=== PATIENT | female | born 1990 | race Caucasian/White ===

== ENCOUNTER 2017-04-25 21:21 | Emergency (ER) | payer OTHER ==
[2017-04-25 23:34] LABS: ABSOLUTE EOSINOPHILS # (AUTO) 0.2 10^3/uL (0.0-0.6); ABSOLUTE LYMPHOCYTES (AUTO) 2.5 10^3/uL (0.5-4.7); ABSOLUTE MONOCYTES (AUTO) 0.5 10^3/uL (0.1-1.4); ABSOLUTE NEUT (AUTO) 3.2 10^3/uL (1.7-8.2); BASOPHILS % (AUTO) 0.6 % (0-2); EOSINOPHILS % (AUTO) 2.6 % (0-6); HEMATOCRIT 39.2 % (36.0-47.0); HEMOGLOBIN 12.9 g/dL (12.0-15.5); HGB HCT DIFFERENCE -0.5; LYMPHOCYTES % (AUTO) 39.1 % (13-45); MEAN CORPUSCULAR HEMOGLOBIN 29.8 pg (27.0-33.4); MEAN CORPUSCULAR HGB CONC 32.9 g/dL (32.0-36.0); MEAN CORPUSCULAR VOLUME 91 fl (80-97); RED BLOOD COUNT 4.32 10^6/uL (3.72-5.28); RED CELL DISTRIBUTION WIDTH 13.4 % (11.5-14.0); SEGMENTED NEUTROPHILS % (AUTO) 49.7 % (42-78); WHITE BLOOD COUNT 6.4 10^3/uL (4.0-10.5)
[2017-04-25 23:47] LABS: ALANINE AMINOTRANSFERASE 35 U/L (9-52); ALBUMIN 4.4 g/dL (3.5-5.0); ALKALINE PHOSPHATASE 52 U/L (38-126); ANION GAP 12 (5-19); ASPARTATE AMINO TRANSFERASE 19 U/L (14-36); BILIRUBIN,DIRECT 0.2 mg/dL (0.0-0.4); BILIRUBIN,TOTAL 0.5 mg/dL (0.2-1.3); BLOOD UREA NITROGEN 13 mg/dL (7-20); CALCIUM 8.9 mg/dL (8.4-10.2); CARBON DIOXIDE 24 mmol/L (22-30); CHLORIDE 104 mmol/L (98-107); CREATININE RESULT 0.75 mg/dL (0.52-1.25); GLUCOSE 85 mg/dL (75-110); LIPASE 160.7 U/L (23-300); POTASSIUM 4.6 mmol/L (3.6-5.0); SODIUM 139.8 mmol/L (137-145); TOTAL PROTEIN 7.2 g/dL (6.3-8.2)
[2017-04-26] MEDS ORDERED: NORMAL SALINE 1000 ML 1,000 ML IV ONE (00:54)
[2017-04-26] MEDS ORDERED: MORPHINE SULFATE 10 MG/ML INJ IV ONE ×2 (00:59→05:13)
[2017-04-26] MEDS ORDERED: ONDANSETRON HCL INJ/PF 4 MG/2 ML SDV IV ONE (01:02)
[2017-04-26 01:08] LABS: APPEARANCE,URINE CLEAR; BILIRUBIN,URINE NEGATIVE (NEGATIVE); GLUCOSE, URINE NEGATIVE (NEGATIVE); KETONES,URINE NEGATIVE (NEGATIVE); LEUKOCYTE ESTERASE,URINE NEGATIVE (NEGATIVE); NITRITE,URINE NEGATIVE (NEGATIVE); PROTEIN,URINE NEGATIVE (NEGATIVE); URINE SPECIFIC GRAVITY 1.008; UROBILINOGEN,URINE NEGATIVE mg/dL (<2.0)
--- NOTE | 2017-04-26 05:12 | RADIOLOGY REPORT (SQ) ---
EXAM DESCRIPTION: CT ABD/PELVIS WITH IV ORAL COMPLETED DATE/TIME: 04/26/2017 4:32 am REASON FOR STUDY: RLQ pain COMPARISON: 11/07/2015. TECHNIQUE: CT scan of the abdomen and pelvis performed using helical scanning technique with dynamic intravenous contrast injection. No oral contrast. Images reviewed with lung, soft tissue, and bone windows. Reconstructed coronal and sagittal MPR images reviewed. Delayed images for evaluation of the urinary system also acquired. All images stored on PACS. All CT scanners at this facility use dose modulation, iterative reconstruction, and/or weight based d osing when appropriate to reduce radiation dose to as low as reasonably achievable (ALARA). [facility]: Dose Right [facility]: CareDose [facility]: Dose Right [facility]: Teradose 4D [facility]: [employer] CONTRAST TYPE AND DOSE: contrast/concentration: Isovue 370.00 mg/ml; Total Contrast Delivered: 64.0 ml; Total Saline Delivered: 65.0 ml RENAL FUNCTION: Creatinine 0.75 RADIATION DOSE: Up-to-date CT equipment and radiation dose reduction techniques were employed. CTDIv ol: 5.6 - 7.5 mGy. DLP: 669 mGy-cm.. LIMITATIONS: None. FINDINGS: LOWER CHEST: No significant findings. No nodules or infiltrates. LIVER: Normal size. No masses. No dilated ducts. SPLEEN: Normal size. No focal lesions. PANCREAS: No masses. No significant calcifications. No adjacent inflammation or peripancreatic fluid collections. Pancreatic duct not dilated. GALLBLADDER: No identified stones by CT criteria. No inflammatory changes to suggest cholecystitis. ADRENAL GLANDS: No significant masses or asymmetry. RIGHT KIDNEY AND URETER: No solid masses. No significant calcifications. No hydronephrosis or hyd roureter. Moderate extrarenal pelvis. Moderate diffuse enlargement of the right ureter. No stone i dentified. Asymmetric post excretion enhancement of the right collecting system. LEFT KIDNEY AND URETER: No solid masses. No significant calcifications. No hydronephrosis or hydr oureter. Moderate extrarenal pelvis. AORTA AND VESSELS: No aneurysm. No dissection. Renal arteries, SMA, celiac without stenosis. RETROPERITONEUM: No retroperitoneal adenopathy, hemorrhage or masses. BOWEL AND PERITONEAL CAVITY: No masses or inflammatory changes. No free fluid or peritoneal masses. APPENDIX: Normal. PELVIS: No mass or free fluid. Normal bladder. 4.1 cm likely left ovarian cyst ; cannot exclude neop lasm. Adequate appearing IUD. ABDOMINAL WALL: No masses. No hernias. BONES: No significant or acute findings. OTHER: No other significant finding. IMPRESSION: 1. Moderate right hydroureter. No obstructive stone identified. Previously described 1 cm obstructive stone of the right distal ureter on exam dated October 2015 is no longer present. D ilation of the right ureter may be due to residual stricture or residual dilation. Urology consultat ion recommended. 2. New 4.1 cm likely left ovarian cyst ; cannot exclude neoplasm. Pelvic sonogram recommended. TECHNICAL DOCUMENTATION: JOB ID: [id number] Quality ID # [id number]: Final reports with documentation of one or more dose reduction techniques (e.g., Au tomated exposure control, adjustment of the mA and/or kV according to patient size, use of iterative reconstruction technique) 2010 [employer]- All Rights Reserved
--- NOTE | 2017-04-26 05:15 | ER Document Report ---
ED GI/ - General Chief Complaint: Flank Pain Stated Complaint: FLANK PAIN Time Seen by Provider: 04/26/17 00:46 Notes: Patient is a 26 year old female that comes to the ED for chief complaint of right mid to lower abdominal pain that started earlier today. She denies flank pain, vomiting, nausea, dysuria, fever/chills. She does have a history of kidney stones, had a large one removed via stent within the past year. She denies other surgeries. She has an IUD in place. TRAVEL OUTSIDE OF THE [place] IN LAST 30 DAYS: No - Related Data Allergies/Adverse Reactions: No Known Allergies Allergy (Unverified 05/27/12 15:16) Past Medical History - General Information source: Patient - Social History Smoking Status: Never Smoker Chew tobacco use (# tins/day): No Frequency of alcohol use: Occasional Drug Abuse: None Lives with: Spouse/Significant other Family History: Reviewed & Not Pertinent Patient has suicidal ideation: No Patient has homicidal ideation: No - Past Medical History Cardiac Medical History: Denies: Hx Coronary Artery Disease, Hx Heart Attack, Hx Hypertension Pulmonary Medical History: Denies: Hx Asthma, Hx Bronchitis, Hx COPD, Hx Pneumonia Neurological Medical History: Denies: Hx Cerebrovascular Accident, Hx Seizures Renal/ Medical History: Reports: Hx Kidney Stones. Denies: Hx Peritoneal Dialysis Musculoskeltal Medical History: Denies Hx Arthritis Psychiatric Medical History: Reports: Hx Attention Deficit Hyperactivity Disorder - adderall Past Surgical History: Reports: Hx Kidney (Renal Surgery) - stent placement - Immunizations Hx Diphtheria, Pertussis, Tetanus Vaccination: No Review of Systems - Review of Systems Constitutional: No symptoms reported EENT: No symptoms reported Cardiovascular: No symptoms reported Respiratory: No symptoms reported Gastrointestinal: See HPI Genitourinary: See HPI Female Genitourinary: No symptoms reported Musculoskeletal: No symptoms reported Skin: No symptoms reported Hematologic/Lymphatic: No symptoms reported Neurological/Psychological: No symptoms reported Physical Exam - Vital signs Vitals: Temp Pulse Resp BP Pulse Ox 97.6 F 85 16 112/64 100 04/25/17 21:42 04/25/17 21:42 04/25/17 21:42 04/25/17 21:42 04/25/17 21:42 Interpretation: Normal - General General appearance: Appears well, Alert In distress: None - HEENT Head: Normocephalic, Atraumatic Eyes: Normal Conjunctiva: Normal Extraocular movements intact: Yes Eyelashes: Normal Pupils: PERRL - Respiratory Respiratory status: No respiratory distress Chest status: Nontender Breath sounds: Normal Chest palpation: Normal - Cardiovascular Rhythm: Regular Heart sounds: Normal auscultation Murmur: No - Abdominal Inspection: Normal Distension: No distension Bowel sounds: Normal Tenderness: Tender - Patient is tender in the right lower quadrant in McBurney' s point, surrounding abdomen soft and nontender, no rebound tenderness, no rigidity, McBurney's point Organomegaly: No organomegaly - Back Back: Normal, Nontender. No: CVA tenderness - Extremities General upper extremity: Normal inspection, Nontender, Normal color, Normal ROM , Normal temperature General lower extremity: Normal inspection, Nontender, Normal color, Normal ROM , Normal temperature, Normal weight bearing. No: Kristel's sign - Neurological Neuro grossly intact: Yes Cognition: Normal Orientation: AAOx4 [place]obo Coma Scale Eye Opening: Spontaneous [place] Coma Scale Verbal: Oriented [place] Coma Scale Motor: Obeys Commands [place] Coma Scale Total: 15 Speech: Normal Motor strength normal: LUE, RUE, LLE, RLE Sensory: Normal - Psychological Associated symptoms: Normal affect, Normal mood - Skin Skin Temperature: Warm Skin Moisture: Dry Skin Color: Normal Course - Re-evaluation Re-evalutation: B, chemistry, urinalysis all unremarkable. HCG negative. No hematuria, no flank pain, patient has McBurney's point tenderness, concern for possible appendicitis. CAT scan with oral and IV contrast ordered CAT scan showing no hydronephrosis, shows right ureteral dilation and possible stricture, no stones seen, no other abnormality seen in the urinary tract. Appendix normal. CAT scan incidentally showed left-sided cystic mass which appears to be ovarian, recommending ultrasound. Discussed with Dr. Larson. Ultrasound showing good blood flow, cystic mass on the left ovary, recommending 6-8 week follow-up. Pain is controlled, she is well-appearing, no fever, no concerning workup acutely. The patient in detail, recommended close neurology follow-up, discussed [employer] follow-up and monitoring, discussed return precautions, providing pain and nausea medication. Provided with this copy of CAT scan and report, patient states understanding and agreement - Vital Signs Vital signs: Temp Pulse Resp BP Pulse Ox 97.6 F 85 16 112/64 100 06/30/17 21:42 04/25/17 21:42 04/25/17 21:42 04/25/17 21:42 04/25/17 21:42 - Laboratory Result Diagrams: 04/25/17 23:15 04/25/17 23:15 Discharge - Discharge Clinical Impression: Abdominal pain Qualifiers: Abdominal location: lower abdomen, unspecified Qualified Code(s): R10.30 - Lower abdominal pain, unspecified Condition: Stable Disposition: HOME, SELF-CARE Additional Instructions: Your CAT scan shows a dilated ureter on the right side. Please follow-up with your urologist, take the disc and report for additional evaluation and treatment. This needs to be a close follow-up. Return if you develop any concerning or worsening symptoms including severe pain, vomiting, fever, etc. Your ultrasound shows a cystic structure on the left ovary, this could resolve, however I recommend a 6-8 week follow-up ultrasound to evaluate this (either with the [employer] referral, primary care, or at the emergency department). Return sooner if he suddenly have severe left lower abdominal pain, vomiting, or any other concerning symptoms. [facility] Urologist in [place], [place] Address: [address] [place] [address] [facility] Medical clinic in [place], [place] Address: [address] [place], [place] [id number] Prescriptions: Morphine Sulfate [Morphine Ir 15 Mg Tablet] 15 mg PO Q4HP PRN #20 tablet PRN Reason: Promethazine HCl [Phenergan 25 mg Tablet] 1 - 2 tab PO Q6H PRN #20 tablet PRN Reason: Forms: Return to Work Referrals: [facility] [Provider Group] - Follow up as needed
[2017-04-26] MEDS ORDERED: MORPHINE SULFATE 10 MG/ML INJ ONE (05:18)
--- NOTE | 2017-04-26 06:07 | RADIOLOGY REPORT (SQ) ---
EXAM DESCRIPTION: U/S NON OB PEL TV W/DOPPLER COMPLETED DATE/TIME: 04/26/2017 5:55 am REASON FOR STUDY: evaluate ovaries COMPARISON: None. TECHNIQUE: Dynamic and static grayscale images acquired of the pelvis via transvaginal approach and recorded on PACS. Additional selected color Doppler and spectral images recorded. LIMITATIONS: None. FINDINGS: UTERUS: Contour normal. No mass. Adequate appearing IUD. The ENDOMETRIAL STRIPE: No focal or generalized thickening. No masses. CERVIX: No nabothian cysts. RIGHT OVARY: No abnormal masses. RIGHT OVARY DOPPLER: Normal arterial vascular flow without evidence for torsion. LEFT OVARY: 4.4 cm left ovary contains a 4.0 cm cystic mass. LEFT OVARY DOPPLER: Normal arterial vascular flow without evidence for torsion. FREE FLUID: None noted. OTHER: No other significant finding. MEASUREMENTS: UTERUS: 10.5 cm. ENDOMETRIAL STRIPE: 0.4 cm thickness. RIGHT OVARY: 3.3 cm. LEFT OVARY: 4.4 cm. IMPRESSION: 1. A 4.0 cm cystic component of the left ovary probably due to a prominent functional c yst ; other neoplastic processes cannot be excluded. 6 to 8 week surveillance sonogram recommended. 2. IUD. TECHNICAL DOCUMENTATION: JOB ID: [id number] [employer]- All Rights Reserved
[2017-04-26 07:00] VITALS: BP 103/72
== END 2017-04-26 07:00 | disposition home or self-care (01) ==
LOC: ER 21:21
DX: R10.31 Right lower quadrant pain (principal); N28.82 Megaloureter; R19.00 Intra-abdominal and pelvic swelling, mass and lump, unspecified site; Z87.442 Personal history of urinary calculi; Z98.890 Other specified postprocedural states; Z97.5 Presence of (intrauterine) contraceptive device
CPT/HCPCS: 96376; 99284; 96361; 96374; 96375; 36415; 83690; 85025; 81025; 80053; 81001; 76830; 93976; 74177; J2270; J2405; J7030

== ENCOUNTER → 2017-05-16 | Outpatient (CLI) | payer OTHER ==
[~2017-05-16] MED LIST: FUROSEMIDE INJ/PF 40 MG/4 ML SDV ONE
--- NOTE | 2017-05-16 14:21 | RADIOLOGY REPORT (SQ) ---
EXAM DESCRIPTION: NM RENAL WITH LASIX COMPLETED DATE/TIME: 05/16/2017 1:50 pm REASON FOR STUDY: HYDRONEPHROSIS N13.2 HYDRONEPHROSIS WITH RENAL AND URETERAL CALCULOUS OBSTR COMPARISON: CT of the abdomen and pelvis dated 04/26/2017 RADIONUCLIDE AND DOSE: 5.27 millicuries Tc-99m MAG 3 The route of agent administration: Intravenous ADDITIONAL DRUGS AND DOSES: Lasix 20 mg. TECHNIQUE: Following administration of the radionuclide, flow images of the kidneys were acquired fo llowed by sequential imaging for 30 minutes. Intravenous Lasix was given at the midpoint of the study . Time activity curves were generated. LIMITATIONS: None. FINDINGS: ACTIVITY LEFT KIDNEY: 48 %. ACTIVITY RIGHT KIDNEY: 52 %. There is prompt uptake of activity in the kidneys bilaterally simultaneous with passage of the aortic bolus. There is normal excretion with progression of activity from the renal cortex into the collec ting system and subsequently into the ureters on the left. There is delayed accumulation of activity in the right pelvocaliceal system with prompt excretion. Time activity curves demonstrate normal ex cretory pattern with no abnormal retention on the left. Time activity curve demonstrates delayed acc umulation of activity on the right with prompt excretion. No obstructive changes. IMPRESSION: There is prompt uptake and excretion in the left kidney. There is delayed accumulation of activity in the right pelvocaliceal system with prompt excretion. This correlates with the findin gs on the abdominal CT scan with a moderate right hydroureter being identified. No significant obstr uction is seen. TECHNICAL DOCUMENTATION: JOB ID: [id number]- All Rights Reserved
== END ==
LOC: RAD 10:58
PROVIDERS: ATTEND Urology
DX: N13.2 Hydronephrosis with renal and ureteral calculous obstruction (principal)
CPT/HCPCS: 78708; A9562; J1940

== ENCOUNTER 2017-10-11 14:51 | Emergency (ER) | payer OTHER ==
[2017-10-11] MEDS ORDERED: ONDANSETRON 4 MG TAB.RAPDIS PO ONE (15:37)
--- NOTE | 2017-10-11 15:39 | ER Document Report ---
HPI - HPI Pain Level: 4 Notes: Patient is a 26-year-old female with a history of kidney stones who presents to the ED complaining of bilateral lower back pain with hematuria and urinary frequency 3-4 days. Patient states that the pain is relatively constant and a dull ache with episodes of sharp pain. Patient states that the pain will come around to her sides, but does not radiate any further. Patient states that she does have associated nausea without vomiting, but is still eating and drinking otherwise without any difficulties. She has had normal bowel movements. She denies any other recent illness. She denies any drug allergies or IV drug use. Denies any procedures or injections into her back. Denies any headache, fever , eye redness/discharge, URI, sore throat, chest pain, palpitations, syncope, cough, shortness of breath, wheeze, dyspnea, abdominal pain, vomiting/diarrhea, vaginal discharge/odor/bleeding, urinary retention, loss of control of bowel or bladder, numbness/tingling, saddle anesthesia, muscle paralysis/weakness, or rash. - ROS Notes: REVIEW OF SYSTEMS: CONSTITUTIONAL : Denies fever, chills, or sweats. Denies recent illness. EENT: Denies eye, ear, throat, or mouth pain or symptoms. Denies nasal or sinus congestion or discharge. Denies throat, tongue, or mouth swelling or difficulty swallowing. CARDIOVASCULAR: Denies chest pain. Denies palpitations or racing or irregular heart beat. Denies ankle edema. RESPIRATORY: Denies cough, cold, or chest congestion. Denies shortness of breath, difficulty breathing, or wheezing. GASTROINTESTINAL: Denies abdominal pain or distention. see hpi. Denies vomiting, or diarrhea. Denies blood in vomitus, stools, or per rectum. Denies black, tarry stools. Denies constipation. GENITOURINARY: see hpi FEMALE GENITOURINARY: Denies vaginal bleeding, heavy or abnormal periods, irregular periods. Denies vaginal discharge or odor. MUSCULOSKELETAL: see hpi SKIN: Denies rash, lesions or sores. NEUROLOGICAL: Denies dizziness or lightheadedness. Denies headache. Denies weakness or paralysis or loss of use of either side. Denies problems with gait or speech. Denies sensory loss, numbness, or tingling. Denies seizures. ALL OTHER SYSTEMS REVIEWED AND NEGATIVE. Dictation was performed using Dragon voice recognition software - REPRODUCTIVE LMP: IUD, Irregular Reproductive: DENIES: : Past Medical History - Social History Smoking Status: Never Smoker Chew tobacco use (# tins/day): No Frequency of alcohol use: Occasional Drug Abuse: None Family History: Reviewed & Not Pertinent Patient has suicidal ideation: No Patient has homicidal ideation: No - Past Medical History Cardiac Medical History: Denies: Hx Coronary Artery Disease, Hx Heart Attack, Hx Hypertension Pulmonary Medical History: Denies: Hx Asthma, Hx Bronchitis, Hx COPD, Hx Pneumonia Neurological Medical History: Denies: Hx Cerebrovascular Accident, Hx Seizures Renal/ Medical History: Reports: Hx Kidney Stones. Denies: Hx Peritoneal Dialysis Musculoskeltal Medical History: Denies Hx Arthritis Psychiatric Medical History: Reports: Hx Attention Deficit Hyperactivity Disorder - adderall Past Surgical History: Reports: Hx Kidney (Renal Surgery) - stent placement - Immunizations Hx Diphtheria, Pertussis, Tetanus Vaccination: No Vertical Provider Document - CONSTITUTIONAL Agree With Documented VS: Yes Notes: PHYSICAL EXAMINATION: GENERAL: Well-appearing, well-nourished and in no acute distress. A&Ox4 LUNGS: Breath sounds clear to auscultation bilaterally and equal. No wheezes rales or rhonchi. HEART: Regular rate and rhythm without murmurs, rubs, gallops. ABDOMEN: Soft, nontender, nondistended abdomen. No guarding, no rebound. No masses appreciated. Normal bowel sounds present. No CVA tenderness bilaterally. No pulsatile mass. Musculoskeletal: LE's b/l: FROM to passive/active. Strength 5+/5. Back: + mild tenderness to the L-paraspinal mm. FROM. Strength 5+/5. SLR neg b /l. No step-offs, erythema, or ecchymosis. No vertebral point tenderness. Extremities: No cyanosis, clubbing, or edema b/l. Peripheral pulses 2+. Capillary refill less than 3 seconds. NEUROLOGICAL: Normal speech, normal gait. Normal sensory, motor exams PSYCH: Normal mood, normal affect. SKIN: Warm, Dry, normal turgor, no rashes or lesions noted. - INFECTION CONTROL TRAVEL OUTSIDE OF THE [place] IN LAST 30 DAYS: No - RESPIRATORY O2 Sat by Pulse Oximetry: 100 Course - Re-evaluation Re-evalutation: 10/11/17 17:27 Patient is an afebrile, well-hydrated, 26-year-old female who presents to the ED with a urinary tract infection. Vitals are stable. PE is otherwise unremarkable. See urinalysis results. Urine cultures pending. HCG negative. CT scan was ordered due to patient's description of pain and prior history of ureteral stones with current urinary infection. Toradol was given IM today along with Zofran p.o. Patient is tolerating p.o. without any difficulties. Low suspicion/risk for acute appendicitis, bowel obstruction, acute cholecystitis, acute cholangitis, perforated diverticulitis, incarcerated hernia , pancreatitis, perforated ulcer, peritonitis, sepsis, pelvic inflammatory disease, ectopic , tubo-ovarian abscess, ovarian torsion, or other systemic emergent condition at this time. Patient is aware that her condition can change from initial presentation and she needs to monitor symptoms closely and seek medical attention if any acute changes. I will send her home with a prescription for Keflex to take as directed. Conservative measures otherwise for symptoms. Recheck with your PCM in 3-5 days. Consider consult with a urologist if needed. Return to the ED with any worsening/concerning symptoms otherwise as reviewed in discharge. Patient is in agreement. - Vital Signs Vital signs: Temp Pulse Resp BP Pulse Ox 98.8 F 83 16 121/82 100 10/11/17 14:57 10/11/17 14:57 10/11/17 14:57 10/11/17 14:57 10/11/17 14:57 Discharge - Discharge Clinical Impression: UTI (urinary tract infection) Qualifiers: Urinary tract infection type: acute cystitis Hematuria presence: with hematuria Qualified Code(s): N30.01 - Acute cystitis with hematuria Condition: Stable Disposition: HOME, SELF-CARE Instructions: Cephalexin ([facility]), Urinary Tract Infection ([facility]) Additional Instructions: Push fluids (i.e. water, cranberry juice) Proper hygenic technique Keep the skin clean Tylenol/ibuprofen as needed May use over the counter AZO for burning with urination Take medications as directed F/u with your PCM in 3-5 days for a recheck Consider consult with a Urologist for ongoing/worsening symptoms. Return to the ED with any worsening symptoms and/or development of fever, headache, chest pain, palpitations, syncope, shortness of breath, trouble breathing, abdominal pain, n/v/d, blood in stool/urine, loss of control of bowel /bladder, urinary retention, or other worsening symptoms that are concerning to you. Prescriptions: Cephalexin Monohydrate [Keflex 500 mg Capsule] 500 mg PO BID #14 capsule Referrals: [facility] [Provider Group] - Follow up as needed
[2017-10-11 15:56] LABS: APPEARANCE,URINE CLOUDY; BILIRUBIN,URINE NEGATIVE (NEGATIVE); GLUCOSE, URINE NEGATIVE (NEGATIVE); KETONES,URINE NEGATIVE (NEGATIVE); LEUKOCYTE ESTERASE,URINE LARGE (NEGATIVE); NITRITE,URINE NEGATIVE (NEGATIVE); PROTEIN,URINE 30 mg/dL (NEGATIVE); UROBILINOGEN,URINE NEGATIVE mg/dL (<2.0)
[2017-10-11] MEDS ORDERED: KETOROLAC TROMETHAMINE INJ/PF 30 MG/1 ML SDV IM ONE (17:01)
--- NOTE | 2017-10-11 17:14 | RADIOLOGY REPORT (SQ) ---
EXAM DESCRIPTION: CT LTD RENAL STONE PROTOCOL ON COMPLETED DATE/TIME: 10/11/2017 4:46 pm REASON FOR STUDY: low back pain, dysuria COMPARISON: 04/26/2017 and 11/07/2015 TECHNIQUE: CT scan of the abdomen and pelvis performed without intravenous or oral contrast. Images reviewed with lung, soft tissue, and bone windows. Reconstructed coronal and sagittal MPR images revi ewed. All images stored on PACS. All CT scanners at this facility use dose modulation, iterative reconstruction, and/or weight based d osing when appropriate to reduce radiation dose to as low as reasonably achievable (ALARA). [facility]: Dose Right [facility]: CareDose [facility]: Dose Right [facility]: Teradose 4D [facility]: [employer] RADIATION DOSE: CT Rad equipment meets quality standard of care and radiation dose reduction techniq ues were employed. CTDIvol: 5.1 mGy. DLP: 267 mGy-cm.mGy. LIMITATIONS: None. FINDINGS: LOWER CHEST: No significant findings. No nodules or infiltrates. NON-CONTRASTED LIVER, SPLEEN, ADRENALS: Evaluation limited by lack of IV contrast. No identified sign ificant masses. PANCREAS: No masses. No peripancreatic inflammatory changes. GALLBLADDER: No identified stones by CT criteria. No inflammatory changes to suggest cholecystitis. RIGHT KIDNEY AND URETER: No suspicious masses. Assessment limited by lack of IV contrast. No signif icant calcifications. Note is again made of an extrarenal pelvis as well as proximal ureterectasis without obstructing mass or stone ; these findings are unchanged relative to 04/26/2017 CT imaging. LEFT KIDNEY AND URETER: No suspicious masses. Assessment limited by lack of IV contrast. No signifi cant calcifications. Note is again made of an extrarenal pelvis. No ureterectasis. AORTA AND RETROPERITONEUM: No aneurysm. No retroperitoneal masses or adenopathy. BOWEL AND PERITONEAL CAVITY: No obvious masses or inflammatory changes. No free fluid. APPENDIX: Normal. PELVIS, BLADDER, AND ABDOMINAL WALL:No abnormal masses. No free fluid. Bladder normal. IUD without e vidence of gross complication. BONES: No significant findings. OTHER: No other significant finding. IMPRESSION: Stable CT appearance of the abdomen and pelvis. No evidence of urolithiasis. Bilateral extrarenal pelves and right proximal ureterectasis are unchanged in the study interval. No acute fi ndings. COMMENT: Quality ID # [id number]: Final reports with documentation of one or more dose reduction techniques (e.g., Automated exposure control, adjustment of the mA and/or kV according to patient size, use of iterative reconstruction technique) TECHNICAL DOCUMENTATION: JOB ID: [id number] [employer]- All Rights Reserved
[2017-10-11 17:45] VITALS: BP 114/79
== END 2017-10-11 17:45 | disposition home or self-care (01) ==
LOC: ER 14:51
DX: N30.01 Acute cystitis with hematuria (principal); Z87.442 Personal history of urinary calculi
CPT/HCPCS: 99284; 96372; 87086; 81025; 81001; 87186; 76380; S0119; J1885

== ENCOUNTER 2018-01-13 19:20 | Emergency (ER) | payer SELFPAY ==
[2018-01-13 19:54] LABS: ABSOLUTE EOSINOPHILS # (AUTO) 0.2 10^3/uL (0.0-0.6); ABSOLUTE LYMPHOCYTES (AUTO) 2.4 10^3/uL (0.5-4.7); ABSOLUTE MONOCYTES (AUTO) 0.6 10^3/uL (0.1-1.4); ABSOLUTE NEUT (AUTO) 6.2 10^3/uL (1.7-8.2); BASOPHILS % (AUTO) 0.4 % (0-2); EOSINOPHILS % (AUTO) 1.7 % (0-6); HEMATOCRIT 39.4 % (36.0-47.0); HEMOGLOBIN 13.3 g/dL (12.0-15.5); LYMPHOCYTES % (AUTO) 25.6 % (13-45); MEAN CORPUSCULAR HEMOGLOBIN 30.1 pg (27.0-33.4); MEAN CORPUSCULAR HGB CONC 33.8 g/dL (32.0-36.0); MEAN CORPUSCULAR VOLUME 89 fl (80-97); PLATELET COUNT 301 10^3/uL (150-450); RED BLOOD COUNT 4.43 10^6/uL (3.72-5.28); RED CELL DISTRIBUTION WIDTH 13.5 % (11.5-14.0); SEGMENTED NEUTROPHILS % (AUTO) 66.3 % (42-78); TOTAL CELLS COUNTED % (AUTO) 100 %; WHITE BLOOD COUNT 9.3 10^3/uL (4.0-10.5)
[2018-01-13 20:13] LABS: ALANINE AMINOTRANSFERASE 35 U/L (9-52); ALBUMIN 4.7 g/dL (3.5-5.0); ALKALINE PHOSPHATASE 60 U/L (38-126); ANION GAP 11 (5-19); ASPARTATE AMINO TRANSFERASE 22 U/L (14-36); BILIRUBIN,DIRECT 0.3 mg/dL (0.0-0.4); BILIRUBIN,TOTAL 0.4 mg/dL (0.2-1.3); BLOOD UREA NITROGEN 11 mg/dL (7-20); CALCIUM 9.6 mg/dL (8.4-10.2); CARBON DIOXIDE 24 mmol/L (22-30); CHLORIDE 106 mmol/L (98-107); GLUCOSE 87 mg/dL (75-110); POTASSIUM 3.8 mmol/L (3.6-5.0); SODIUM 141.1 mmol/L (137-145); TOTAL PROTEIN 7.8 g/dL (6.3-8.2)
[2018-01-13 20:46] LABS: APPEARANCE,URINE SLIGHTLY-CLOUDY; BILIRUBIN,URINE NEGATIVE (NEGATIVE); COLOR,URINE STRAW; GLUCOSE, URINE NEGATIVE (NEGATIVE); KETONES,URINE NEGATIVE (NEGATIVE); LEUKOCYTE ESTERASE,URINE TRACE (NEGATIVE); NITRITE,URINE NEGATIVE (NEGATIVE); PROTEIN,URINE NEGATIVE (NEGATIVE); URINE SPECIFIC GRAVITY 1.004; UROBILINOGEN,URINE NEGATIVE mg/dL (<2.0)
[2018-01-13 20:51] LABS: URINE AMPHETAMINES SCREEN NEGATIVE; URINE BARBITURATES SCREEN NEGATIVE; URINE BENZODIAZEPINES SCREEN NEGATIVE; URINE COCAINE SCREEN NEGATIVE; URINE MARIJUANA (THC) SCREEN NEGATIVE; URINE METHADONE SCREEN NEGATIVE; URINE PHENCYCLIDINE SCREEN NEGATIVE
--- NOTE | 2018-01-13 21:17 | ER Document Report ---
ED Syncope and Near Syncope - General Chief Complaint: Syncope Stated Complaint: DIZZINESS Time Seen by Provider: 01/13/18 19:36 Mode of Arrival: Ambulatory Information source: Patient Notes: Patient is a 27-year-old female who presents to the ER today for 5 episodes of syncope in the past 3 days. Patient states that she feels lightheaded before it happens and then passes out, falling to the floor, unconscious for approximately 15 seconds and then coming to. Witnesses state that whenever she comes to she is confused for approximately 5-10 minutes and sometimes slurs her words. Patient has no history of syncope or seizures, cardiac history. Patient denies any chest pains, shortness of breath, recent illness. Patient denies headache. TRAVEL OUTSIDE OF THE [place] IN LAST 30 DAYS: No - Related Data Allergies/Adverse Reactions: No Known Allergies Allergy (Unverified 05/27/12 15:16) Past Medical History - General Information source: Patient - Social History Smoking Status: Never Smoker Chew tobacco use (# tins/day): No Frequency of alcohol use: Occasional Drug Abuse: None Family History: Reviewed & Not Pertinent Patient has suicidal ideation: No Patient has homicidal ideation: No - Past Medical History Cardiac Medical History: Denies: Hx Coronary Artery Disease, Hx Heart Attack, Hx Hypertension Pulmonary Medical History: Denies: Hx Asthma, Hx Bronchitis, Hx COPD, Hx Pneumonia Neurological Medical History: Denies: Hx Cerebrovascular Accident, Hx Seizures Renal/ Medical History: Reports: Hx Kidney Stones. Denies: Hx Peritoneal Dialysis Musculoskeltal Medical History: Denies Hx Arthritis Psychiatric Medical History: Reports: Hx Attention Deficit Hyperactivity Disorder - adderall Past Surgical History: Reports: Hx Kidney (Renal Surgery) - stent placement - Immunizations Hx Diphtheria, Pertussis, Tetanus Vaccination: No Review of Systems - Review of Systems Constitutional: No symptoms reported EENT: No symptoms reported Cardiovascular: No symptoms reported Respiratory: No symptoms reported Gastrointestinal: No symptoms reported Genitourinary: No symptoms reported Female Genitourinary: No symptoms reported Musculoskeletal: No symptoms reported Skin: No symptoms reported Hematologic/Lymphatic: No symptoms reported Neurological/Psychological: See HPI Physical Exam - Vital signs Vitals: Temp Pulse BP Pulse Ox 98.4 F 91 121/85 100 01/13/18 19:25 01/13/18 19:25 01/13/18 19:25 01/13/18 19:25 - Notes Notes: PHYSICAL EXAMINATION: GENERAL: Well-appearing and in no acute distress. HEAD: Atraumatic, normocephalic. EYES: Pupils equal round and reactive to light, extraocular movements intact, sclera anicteric, conjunctiva are normal. NECK: Normal range of motion, supple without lymphadenopathy LUNGS: CTAB and equal. No wheezes rales or rhonchi. HEART: Regular rate and rhythm without murmurs ABDOMEN: Soft, no tenderness. No guarding, no rebound BACK: no vertebral tenderness, normal ROM GI/: no CVA tenderness EXTREMITIES: Normal range of motion, no pitting edema. No cyanosis. NEUROLOGICAL: Cranial nerves grossly intact. Normal sensory/motor exams. Good and equal strength bilaterally, Kernig and Brudzinski's signs negative, Romberg' s test normal, normal heel to nassar testing PSYCH: Normal mood, normal affect. SKIN: Warm, Dry, normal turgor, no rashes or lesions noted Course - Re-evaluation Re-evalutation: 01/14/18 04:25 Patient has normal neurological exam, lab work unremarkable for any acute pathology today. Glucose is 87, patient states that she just ate apple jacks prior to arrival. EKG reveals a normal sinus rhythm without evidence of ischemia. Holter monitor is ordered for patient to have placed. Patient is given neurology and cardiology follow-up. Case was discussed with Dr. Haywood, who agrees with plan. - Vital Signs Vital signs: Temp Pulse Resp BP Pulse Ox 98.4 F 77 17 115/84 100 01/13/18 21:21 01/13/18 21:21 01/13/18 21:21 01/13/18 21:21 01/13/18 21:21 - Laboratory Result Diagrams: 01/13/18 19:45 01/13/18 19:45 Laboratory results interpreted by me: 01/13/18 19:59 Ur Leukocyte Esterase TRACE H Discharge - Discharge Clinical Impression: Syncope and collapse Condition: Stable Disposition: HOME, SELF-CARE Additional Instructions: Drink plenty of fluids, Gatorade. Return immediately for any new or worsening symptoms. Follow up with al cardiology/neurology, call tomorrow to make followup appointment. Forms: Return to Work, Follow-Up Outpatient Testing Referrals: JOSE MIGUEL ARANA MD [ACTIVE STAFF] - Follow up as needed GABO SALMON MD [NO LOCAL MD] - Follow up as needed
[2018-01-13 21:24] VITALS: BP 115/84
--- NOTE | 2018-01-13 22:21 | EKG REPORT ---
SEVERITY:- NORMAL ECG - SINUS RHYTHM : Confirmed by: Wai Roberts 13-Jan-2018 22:21:30
== END 2018-01-13 21:23 | disposition home or self-care (01) ==
LOC: ER 19:20
DX: R55 Syncope and collapse (principal); R42 Dizziness and giddiness; Z87.442 Personal history of urinary calculi
CPT/HCPCS: 36415; 80053; 80307; 81001; 81025; 85025; 93005; 93010; 99284

== ENCOUNTER 2018-01-16 21:45 | Emergency (ER) | payer OTHER ==
[2018-01-16 22:50] LABS: ABSOLUTE EOSINOPHILS # (AUTO) 0.1 10^3/uL (0.0-0.6); ABSOLUTE LYMPHOCYTES (AUTO) 2.5 10^3/uL (0.5-4.7); ABSOLUTE MONOCYTES (AUTO) 0.5 10^3/uL (0.1-1.4); ABSOLUTE NEUT (AUTO) 4.7 10^3/uL (1.7-8.2); BASOPHILS % (AUTO) 0.3 % (0-2); EOSINOPHILS % (AUTO) 1.4 % (0-6); HEMATOCRIT 39.8 % (36.0-47.0); HEMOGLOBIN 13.3 g/dL (12.0-15.5); LYMPHOCYTES % (AUTO) 31.9 % (13-45); MEAN CORPUSCULAR HEMOGLOBIN 29.9 pg (27.0-33.4); MEAN CORPUSCULAR HGB CONC 33.5 g/dL (32.0-36.0); MEAN CORPUSCULAR VOLUME 89 fl (80-97); MONOCYTES % (AUTO) 6.5 % (3-13); PLATELET COUNT 294 10^3/uL (150-450); RED BLOOD COUNT 4.46 10^6/uL (3.72-5.28); RED CELL DISTRIBUTION WIDTH 13.4 % (11.5-14.0); SEGMENTED NEUTROPHILS % (AUTO) 59.9 % (42-78); TOTAL CELLS COUNTED % (AUTO) 100 %; WHITE BLOOD COUNT 7.8 10^3/uL (4.0-10.5)
--- NOTE | 2018-01-16 22:51 | ER Document Report ---
ED General - General Chief Complaint: Passed Out Prior to Arrival Stated Complaint: FAINTING Time Seen by Provider: 01/16/18 22:38 Notes: Patient is a 27-year-old female presents with complaint of dizziness and passing out. Patient says that she was seen here a few days ago after multiple syncopal episodes. Workup at that time was negative. She was referred for Holter monitor. She did have a Holter monitor performed. I did look up the results of the Holter monitor and her heart rates stayed between the 60s and 116. She is specified to a incident engineer but has not yet followed up with one. She is told that it could be due to low blood sugar. She therefore has been eating food and drinking Gatorade. Today she had recurrent episodes of feeling she is going to pass out. She again passed out. They checked her blood sugar at the time she is passing out and was in the 80s and 90s. Her blood sugar has been checked frequently over last few days and never has gotten below the 70s. She denies any focal weakness or numbness. She says when she passed out she sees black spots and when she first wakes up her speech is slightly slurred for a few seconds but then she gradually becomes back to normal. She says that she overall feels weak. She denies any recent fevers or infections. She denies any history of this prior to last 3 days. She says she is passed out whether she was standing or just sitting down. She denies any bleeding. She has no other complaints at this time. Denies chest pain or palpitations or headache. TRAVEL OUTSIDE OF THE [place] IN LAST 30 DAYS: No - Related Data Allergies/Adverse Reactions: No Known Allergies Allergy (Unverified 05/27/12 15:16) Past Medical History - Social History Smoking Status: Never Smoker Chew tobacco use (# tins/day): No Frequency of alcohol use: None Drug Abuse: None Family History: Reviewed & Not Pertinent Patient has suicidal ideation: No Patient has homicidal ideation: No - Past Medical History Cardiac Medical History: Denies: Hx Coronary Artery Disease, Hx Heart Attack, Hx Hypertension Pulmonary Medical History: Denies: Hx Asthma, Hx Bronchitis, Hx COPD, Hx Pneumonia Neurological Medical History: Denies: Hx Cerebrovascular Accident, Hx Seizures Renal/ Medical History: Reports: Hx Kidney Stones. Denies: Hx Peritoneal Dialysis Musculoskeltal Medical History: Denies Hx Arthritis Psychiatric Medical History: Reports: Hx Attention Deficit Hyperactivity Disorder - adderall Past Surgical History: Reports: Hx Kidney (Renal Surgery) - stent placement - Immunizations Hx Diphtheria, Pertussis, Tetanus Vaccination: No Review of Systems - Review of Systems Notes: My Normal Review Basic REVIEW OF SYSTEMS: CONSTITUTIONAL : Denies fever, chills, or sweats. Denies recent illness. EENT: Denies eye, ear, throat, or mouth pain or symptoms. Denies nasal or sinus congestion. CARDIOVASCULAR: Denies chest pain. Denies palpitations. RESPIRATORY: Denies cough, cold, or chest congestion. Denies shortness of breath, difficulty breathing, or wheezing. GASTROINTESTINAL: Denies abdominal pain. Denies nausea, vomiting, or diarrhea. GENITOURINARY: Denies difficulty urinating, painful urination, burning, frequency, or blood in urine. FEMALE GENITOURINARY: Denies vaginal bleeding, abnormal or irregular periods. LMP: MUSCULOSKELETAL: Denies neck or back pain or joint pain or swelling. SKIN: Denies rash or skin lesions. HEMATOLOGIC : Denies easy bruising or bleeding. LYMPHATIC: Denies swollen, enlarged glands. NEUROLOGICAL: Recurrent syncope. Denies headache. Denies weakness or paralysis or loss of use of either side. Denies problems with gait or speech. Denies sensory or motor loss. ALL OTHER SYSTEMS REVIEWED AND NEGATIVE. Physical Exam - Vital signs Vitals: Temp Pulse Resp BP Pulse Ox 98.3 F 82 16 114/84 100 01/16/18 21:52 01/16/18 21:52 01/16/18 21:52 01/16/18 21:52 01/16/18 21:52 - Notes Notes: General Appearance: Well nourished, alert, cooperative, no acute distress, no obvious discomfort. Vitals: reviewed, See vital signs table. Head: no swelling or tenderness to the head Eyes: PERRL, EOMI, Conjuctiva clear Mouth: No decreasd moisture Neck: Supple, no neck tenderness, No thyromegaly Lungs: No wheezing, No rales, No rhonci, No accessory muscle use, good air exchange bilaterally. Heart: Normal rate, Regular rythm, No murmur, no rub Abdomen: Normal BS, soft, No rigidity, No abdominal tenderness, No guarding, no rebound, no abdominal masses, no organomegaly Extremities: strength 5/5 in all extremities, good pulses in all extremities, no swelling or tenderness in the extremities, no edema. Skin: warm, dry, appropriate color, no rash Neuro: speech clear, oriented x 3, normal affect, responds appropriately to questions. Renal nerves II through XII are intact. Distal sensation intact. Normal Romberg. Patient is able stand up and balance without becoming dizzy or lightheaded. Course - Re-evaluation Re-evalutation: 01/17/18 05:31 Patient has not had any further dizziness or passing out observed on the monitor. Previous Holter monitor screening showed a acute concerning findings. Her d-dimer is negative. She is well-appearing. Her initial urine was positive but this was a false positive being that her beta hCG quant of the blood test is negative. She does not have orthostatic Hypotension per her history and vital signs. I do not see any findings or complaints or history to suggest that this is related to a life-threatening or central cause as patient does not have chest pain, does not have shortness of breath, no headache , no focal weakness or numbness, no fevers. Currently patient looks very well most fully neurologically intact. At this time patient has been want to be discharged home. I informed him that the need to follow-up very closely with incident engineer for further testing. I did again give them Dr. Arana's number and the discharge paperwork informed him to call the office first thing Friday. Informed him to return to the ER if she has ongoing recurrent syncopal episodes, any headache, any chest pain or shortness of breath, or she feels unwell. Patient and agree with plan and she will be discharged home. Dictation of this chart was performed using voice recognition software; therefore, there may be some unintended grammatical errors. - Vital Signs Vital signs: Temp Pulse Resp BP Pulse Ox 98.3 F 76 19 117/82 98 01/16/18 21:52 01/16/18 22:50 01/17/18 01:00 01/16/18 23:00 01/17/18 01:00 - Laboratory Result Diagrams: 01/16/18 22:18 01/16/18 22:18 Laboratory results interpreted by me: 01/16/18 21:20 Ur Leukocyte Esterase TRACE H Urine Ascorbic Acid 40 H Urine HCG, Qual POSITIVE H - EKG Interpretation by Me Additional EKG results interpreted by me: 01/16/18 22:50 EKG is reviewed and interpreted by me. EKG shows normal sinus rhythm with rate of [address] segment elevation or depression. No ischemic T-wave inversions. [place] interval, QRS duration, QTc intervals are within normal range. Old EKG for comparison is from January 13, 2018. Discharge - Discharge Clinical Impression: Syncope Qualifiers: Syncope type: unspecified Qualified Code(s): R55 - Syncope and collapse Condition: Good Disposition: HOME, SELF-CARE Additional Instructions: Please follow up with Dr. Arana for further workup in regards to your passing out episodes. Please call the office Friday morning to arrange a close follow up appointment within the next 3-4 days. Please return to the ER if you are having headaches, chest pain, difficulty breathing, fevers, or feel that your passing out episodes are increasing or becoming more frequent. Forms: Return to Work Referrals: JOSE MIGUEL ARANA MD [ACTIVE STAFF] - 01/19/18
[2018-01-16 22:57] LABS: APPEARANCE,URINE CLOUDY; BILIRUBIN,URINE NEGATIVE (NEGATIVE); COLOR,URINE YELLOW; GLUCOSE, URINE NEGATIVE (NEGATIVE); KETONES,URINE NEGATIVE (NEGATIVE); LEUKOCYTE ESTERASE,URINE TRACE (NEGATIVE); NITRITE,URINE NEGATIVE (NEGATIVE); PROTEIN,URINE NEGATIVE (NEGATIVE); URINE SPECIFIC GRAVITY 1.029; UROBILINOGEN,URINE NEGATIVE mg/dL (<2.0)
[2018-01-16 23:04] LABS: ALANINE AMINOTRANSFERASE 36 U/L (9-52); ALBUMIN 4.4 g/dL (3.5-5.0); ALKALINE PHOSPHATASE 58 U/L (38-126); ANION GAP 9 (5-19); ASPARTATE AMINO TRANSFERASE 20 U/L (14-36); BILIRUBIN,DIRECT 0.1 mg/dL (0.0-0.4); BILIRUBIN,TOTAL 0.2 mg/dL (0.2-1.3); BLOOD UREA NITROGEN 16 mg/dL (7-20); CALCIUM 9.7 mg/dL (8.4-10.2); CARBON DIOXIDE 27 mmol/L (22-30); CHLORIDE 103 mmol/L (98-107); CREATINE KINASE 52 U/L (30-135); GLUCOSE 80 mg/dL (75-110); POTASSIUM 3.9 mmol/L (3.6-5.0); SODIUM 139.3 mmol/L (137-145); TOTAL PROTEIN 7.2 g/dL (6.3-8.2)
[2018-01-16 23:16] LABS: CREATINE KINASE MB 0.34 ng/mL (<4.55)
[2018-01-16 23:17] LABS: TROPONIN I < 0.012 ng/mL
[2018-01-16 23:44] LABS: FREE T4 (FREE THYROXINE) 1.09 ng/dL (0.78-2.19)
[2018-01-16 23:58] LABS: THYROID STIMULATING HORMONE 1.94 uIU/mL (0.47-4.68)
[2018-01-17 00:03] VITALS: BP 117/82
--- NOTE | 2018-01-17 09:13 | EKG REPORT ---
SEVERITY:- NORMAL ECG - SINUS RHYTHM : Confirmed by: Wai Roberts 17-Jan-2018 09:12:37
== END 2018-01-17 01:18 | disposition home or self-care (01) ==
LOC: ER 21:45
DX: R55 Syncope and collapse (principal); R53.1 Weakness
CPT/HCPCS: 36415; 80053; 81001; 81025; 82550; 82553; 82962; 84439; 84443; 84484; 84702; 85025; 85379; 93005; 93010; 99284

== ENCOUNTER 2018-02-12 17:57 | Emergency (ER) | payer OTHER ==
[2018-02-12 18:05] VITALS: BP 104/71
--- NOTE | 2018-02-12 19:59 | ER Document Report ---
ED Medical Screen (RME) - General Chief Complaint: Fever Stated Complaint: FEVER Time Seen by Provider: 02/12/18 19:44 Notes: Patient treated for tonsillitis 2 days ago with Augmentin by her primary care physician. She states that she was running a fever up to 103. Represents to her family doctor for worsening ear pain and pain behind her left ear. Patient was sent from family doctor's office for concern of mastoiditis. Patient denies any headache vision changes or problems breathing. She does have pain in the left side of her neck and is worse when she moves her neck. Oriented to time person and place and is otherwise well-appearing with normal vitals in triage. She is also afebrile in upon initial evaluation. I have greeted and performed a rapid initial assessment of this patient. A comprehensive ED assessment and evaluation of the patient, analysis of test results and completion of the medical decision making process will be conducted by additional ED providers. PHYSICAL EXAMINATION: GENERAL: Well-appearing, well-nourished and in no acute distress. HEAD: Atraumatic, normocephalic, tenderness to palpation with light touch behind left ear. EYES: Pupils equal round extraocular movements intact, conjunctiva are normal. ENT: Nares patent, tenderness to palpation lateral aspect of left side of neck with mild anterior inferior lymphadenopathy NECK: Pain with range of motion to the left and right LUNGS: No respiratory distress Musculoskeletal: Normal range of motion NEUROLOGICAL: Normal speech, normal gait. PSYCH: Normal mood, normal affect. SKIN: Warm, Dry, normal turgor, no rashes or lesions noted. TRAVEL OUTSIDE OF THE [place] IN LAST 30 DAYS: No - Related Data Allergies/Adverse Reactions: No Known Allergies Allergy (Unverified 05/27/12 15:16) Past Medical History - Social History Chew tobacco use (# tins/day): No Frequency of alcohol use: None Drug Abuse: None - Past Medical History Cardiac Medical History: Denies: Hx Coronary Artery Disease, Hx Heart Attack, Hx Hypertension Pulmonary Medical History: Denies: Hx Asthma, Hx Bronchitis, Hx COPD, Hx Pneumonia Neurological Medical History: Denies: Hx Cerebrovascular Accident, Hx Seizures Renal/ Medical History: Reports: Hx Kidney Stones. Denies: Hx Peritoneal Dialysis Musculoskeltal Medical History: Denies Hx Arthritis Psychiatric Medical History: Reports: Hx Attention Deficit Hyperactivity Disorder Past Surgical History: Reports: Hx Kidney (Renal Surgery) - stent placement - Immunizations Hx Diphtheria, Pertussis, Tetanus Vaccination: No Physical Exam - Vital signs Vitals: Temp Pulse Resp BP Pulse Ox 98.0 F 82 15 104/71 100 02/12/18 18:04 02/12/18 18:04 02/12/18 18:04 02/12/18 18:04 02/12/18 18:04 Course - Vital Signs Vital signs: Temp Pulse Resp BP Pulse Ox 98.0 F 82 15 104/71 100 02/12/18 18:04 02/12/18 18:04 02/12/18 18:04 02/12/18 18:04 02/12/18 18:04 Doctor's Discharge - Discharge Referrals: OMERO LUNDBERG MD [Primary Care Provider] - Follow up as needed
[2018-02-12 20:20] LABS: APPEARANCE,URINE CLOUDY; BILIRUBIN,URINE NEGATIVE (NEGATIVE); COLOR,URINE YELLOW; GLUCOSE, URINE NEGATIVE (NEGATIVE); KETONES,URINE NEGATIVE (NEGATIVE); LEUKOCYTE ESTERASE,URINE MODERATE (NEGATIVE); NITRITE,URINE NEGATIVE (NEGATIVE); PROTEIN,URINE NEGATIVE (NEGATIVE); URINE SPECIFIC GRAVITY 1.009; UROBILINOGEN,URINE NEGATIVE mg/dL (<2.0)
[2018-02-12 20:43] LABS: ABSOLUTE EOSINOPHILS # (AUTO) 0.2 10^3/uL (0.0-0.6); ABSOLUTE LYMPHOCYTES (AUTO) 2.9 10^3/uL (0.5-4.7); ABSOLUTE MONOCYTES (AUTO) 0.5 10^3/uL (0.1-1.4); ABSOLUTE NEUT (AUTO) 4.7 10^3/uL (1.7-8.2); BASOPHILS % (AUTO) 0.5 % (0-2); EOSINOPHILS % (AUTO) 2.2 % (0-6); HEMATOCRIT 40.3 % (36.0-47.0); LYMPHOCYTES % (AUTO) 35.1 % (13-45); MEAN CORPUSCULAR HEMOGLOBIN 30.8 pg (27.0-33.4); MEAN CORPUSCULAR HGB CONC 34.7 g/dL (32.0-36.0); MEAN CORPUSCULAR VOLUME 89 fl (80-97); MONOCYTES % (AUTO) 6.4 % (3-13); PLATELET COUNT 339 10^3/uL (150-450); RED BLOOD COUNT 4.54 10^6/uL (3.72-5.28); SEGMENTED NEUTROPHILS % (AUTO) 55.8 % (42-78); TOTAL CELLS COUNTED % (AUTO) 100 %; WHITE BLOOD COUNT 8.4 10^3/uL (4.0-10.5)
[2018-02-12 21:04] LABS: ALANINE AMINOTRANSFERASE 37 U/L (9-52); ALBUMIN 4.6 g/dL (3.5-5.0); ALKALINE PHOSPHATASE 65 U/L (38-126); ANION GAP 14 (5-19); ASPARTATE AMINO TRANSFERASE 23 U/L (14-36); BILIRUBIN,DIRECT 0.2 mg/dL (0.0-0.4); BILIRUBIN,TOTAL 0.2 mg/dL (0.2-1.3); BLOOD UREA NITROGEN 14 mg/dL (7-20); CALCIUM 10.1 mg/dL (8.4-10.2); CARBON DIOXIDE 28 mmol/L (22-30); CHLORIDE 103 mmol/L (98-107); GLUCOSE 82 mg/dL (75-110); POTASSIUM 4.6 mmol/L (3.6-5.0); SODIUM 145.3 mmol/L (137-145); TOTAL PROTEIN 7.5 g/dL (6.3-8.2)
[2018-02-12] MEDS ORDERED: METHYLPREDNISOLONE INJ 125 MG/2 ML SDV IV ONE (22:04)
[2018-02-12] MEDS ORDERED: KETOROLAC TROMETHAMINE INJ/PF 30 MG/1 ML SDV IV ONE (22:04)
[2018-02-12] MEDS ORDERED: NORMAL SALINE 1000 ML 1,000 ML IV ONE (22:05)
--- NOTE | 2018-02-12 22:14 | ER Document Report ---
ED General - General Mode of Arrival: Ambulatory Information source: Patient TRAVEL OUTSIDE OF THE [place] IN LAST 30 DAYS: No <CARLOS ENAMORADO - Last Filed: 02/12/18 22:23> <JUANA LOPEZ - Last Filed: 02/12/18 23:06> - General Chief Complaint: Fever Stated Complaint: FEVER Time Seen by Provider: 02/12/18 19:44 Notes: Patient is a 27 year old female with a history of kidney stones and ADHD presents to the emergency department complaining of worsening left sided ear, neck and head pain onset 2 days ago. Patient states she was recently diagnosed with strep throat with a positive strep test on 02/09/2018. Patient describes her pain as a soreness and stabbing. Patient states she has been running a low grade fever over the last couple of days but at her doctors office they recorded a fever of 103. Patient's PCP sent her to the emergency department with concerns of mastoiditis. Patient denies a cough. Patient is currently prescribed Augmentin x2 daily. (CARLOS ENAMORADO) - Related Data Allergies/Adverse Reactions: No Known Allergies Allergy (Unverified 05/27/12 15:16) Past Medical History - General Information source: Patient - Social History Smoking Status: Former Smoker Chew tobacco use (# tins/day): No Frequency of alcohol use: None Drug Abuse: None Family History: Reviewed & Not Pertinent Patient has suicidal ideation: No Patient has homicidal ideation: No Renal/ Medical History: Reports: Hx Kidney Stones Psychiatric Medical History: Reports: Hx Attention Deficit Hyperactivity Disorder Past Surgical History: Reports: Hx Kidney (Renal Surgery) - laser Lithotripsy of right ureteral stone, ureteral stent placed. - Immunizations Hx Diphtheria, Pertussis, Tetanus Vaccination: No <CARLOS ENAMORADO - Last Filed: 02/12/18 22:23> Review of Systems - Review of Systems Constitutional: No symptoms reported EENT: See HPI Cardiovascular: No symptoms reported Respiratory: No symptoms reported Gastrointestinal: No symptoms reported Genitourinary: No symptoms reported Female Genitourinary: No symptoms reported Musculoskeletal: See HPI Skin: No symptoms reported Hematologic/Lymphatic: No symptoms reported Neurological/Psychological: No symptoms reported -: Yes All other systems reviewed and negative <CARLOS ENAMORADO - Last Filed: 02/12/18 22:23> Physical Exam - General General appearance: Appears well, Alert In distress: None - HEENT Head: Normocephalic, Tenderness - Left parietal scalp tenderness to palpation. Left mastoid tender to palpation, no erythema no swelling. Tympanic membrane: Bulging - Left, clear fluid, Retracted - right Pharynx: Erythema, Uvular edema - and elongation Neck: Other - posterior cervical lymphnodes and musculature very tender to palpation. Anterior lymnodes non tender to palpation. - Respiratory Respiratory status: No respiratory distress Chest status: Nontender Breath sounds: Normal Chest palpation: Normal - Cardiovascular Rhythm: Regular Heart sounds: Normal auscultation Murmur: No Friction rub: No Gallop: None auscultated - Abdominal Inspection: Normal - Extremities General upper extremity: Normal ROM General lower extremity: Normal ROM - Neurological Neuro grossly intact: Yes Cognition: Normal Orientation: AAOx4 [place] Coma Scale Eye Opening: Spontaneous [place] Coma Scale Verbal: Oriented [place] Coma Scale Motor: Obeys Commands [place] Coma Scale Total: 15 Speech: Normal - Psychological Associated symptoms: Normal affect, Normal mood - Skin Skin Temperature: Warm Skin Moisture: Dry Skin Color: Normal <CARLOS ENAMORADO - Last Filed: 02/12/18 22:23> - Vital signs Vitals: Temp Pulse Resp BP Pulse Ox 98.0 F 82 15 104/71 100 02/12/18 18:04 02/12/18 18:04 02/12/18 18:04 02/12/18 18:04 02/12/18 18:04 Course - Laboratory Result Diagrams: 02/12/18 20:20 02/12/18 20:20 <CARLOS ENAMORADO - Last Filed: 02/12/18 22:23> - Laboratory Result Diagrams: 02/12/18 20:20 02/12/18 20:20 - Diagnostic Test Radiology reviewed: Image reviewed, Reports reviewed - Contrasted CT scan of the neck and CT head <JUANA LOPEZ - Last Filed: 02/12/18 23:06> - Vital Signs Vital signs: Temp Pulse Resp BP Pulse Ox 98.0 F 82 15 104/71 100 02/12/18 18:04 02/12/18 18:04 02/12/18 18:04 02/12/18 18:04 02/12/18 18:04 - Laboratory Laboratory results interpreted by me: 02/12/18 02/12/18 17:59 20:20 Sodium 145.3 H Ur Leukocyte Esterase MODERATE H Discharge <CARLOS ENAMORADO - Last Filed: 02/12/18 22:23> <JUANA LOPEZ - Last Filed: 02/12/18 23:06> - Discharge Clinical Impression: Acute viral pharyngitis, Scalp tenderness Condition: Stable Disposition: HOME, SELF-CARE Additional Instructions: CT scans did not show any abnormalities, specifically no mastoiditis. The blood work suggests you have a viral sore throat. The tender glands in your left posterior cervical neck are also suggestive of a viral infection. The tenderness and pain you are experiencing is from the muscles on your parietal scalp region and are not due to any underlying infection. You will be prescribed a short course of a steroid called Prednisone to suppress the inflammation in your throat and neck glands. Start the prednisone tomorrow. Take Tylenol every 4 hours and ibuprofen 800 mg every 8 hours for pain and inflammation. Follow-up with your doctor if not improving. RETURN TO THE EMERGENCY ROOM IF ANY NEW OR WORSENING SYMPTOMS. Prescriptions: Prednisone [Deltasone 10 mg Tablet] 10 mg PO ASDIR PRN #15 tablet PRN Reason: Forms: Return to Work Referrals: OMERO LUNDBERG MD [Primary Care Provider] - Follow up as needed Scribe Attestation: 02/12/18 22:56 I personally performed the services described in the documentation, reviewed and edited the documentation which was dictated to the scribe in my presence, and it accurately records my words and actions. (JUANA LOPEZ) Scribe Documentation - Scribe Written by Osiel:: Osiel Darby, 02/12/2018 22:20 acting as scribe for :: Susan <CARLOS ENAMORADO - Last Filed: 02/12/18 22:23>
--- NOTE | 2018-02-12 22:24 | RADIOLOGY REPORT (SQ) ---
EXAM DESCRIPTION: CT HEAD WITH COMPLETED DATE/TIME: 02/12/2018 9:59 pm REASON FOR STUDY: concern for mastoiditis COMPARISON: None. TECHNIQUE: Axial images acquired through the brain with intravenous contrast. Images reviewed with b one, brain and subdural windows. Additional sagittal and coronal reconstructions were generated. Fely ges stored on PACS. All CT scanners at this facility use dose modulation, iterative reconstruction, and/or weight based d osing when appropriate to reduce radiation dose to as low as reasonably achievable (ALARA). [facility]: Dose Right [facility]: CareDose [facility]: Dose Right [facility]: Teradose 4D [facility]: [employer] CONTRAST TYPE AND DOSE: 75 cc Isovue 370- low osmolar. RENAL FUNCTION: BUN 14 creatinine 0.71 RADIATION DOSE: . LIMITATIONS: None. FINDINGS: VENTRICLES: Normal size and contour. CEREBRUM: No masses. No hemorrhage. No midline shift. Normal díaz/white matter differentiation. No ev idence for acute infarction. No enhancing lesions. CEREBELLUM: No masses. No hemorrhage. No alteration of density. No evidence for acute infarction. No enhancing lesions. EXTRA-AXIAL SPACES: No fluid collections. No enhancing lesions. ORBITS AND GLOBE: No intra- or extraconal masses. Normal contour of globe without masses. CALVARIUM: No fracture. PARANASAL SINUSES: No fluid or mucosal thickening. The mastoid air cells are normal. SOFT TISSUES: No mass or hematoma. OTHER: No other significant finding. IMPRESSION: Normal brain CT with contrast. There is no evidence of mastoiditis. EVIDENCE OF ACUTE STROKE: NO. TECHNICAL DOCUMENTATION: JOB ID: [id number] Quality ID # [id number]: Final reports with documentation of one or more dose reduction techniques (e.g., Au tomated exposure control, adjustment of the mA and/or kV according to patient size, use of iterative reconstruction technique) 2010 [employer]- All Rights Reserved Reading location - IP/workstation name: [email or web address]
--- NOTE | 2018-02-12 22:30 | RADIOLOGY REPORT (SQ) ---
EXAM DESCRIPTION: CT SOFT TISSUE NECK WITH COMPLETED DATE/TIME: 02/12/2018 9:59 pm REASON FOR STUDY: CONCERN FOR MASTOIDITIS COMPARISON: None. TECHNIQUE: Post IV contrasted scanning from skull base through lung apices with review of bone, soft tissue and lung windows. Reconstructed coronal and sagittal MPR images reviewed. All images stored on PACS. All CT scanners at this facility use dose modulation, iterative reconstruction, and/or weight based d osing when appropriate to reduce radiation dose to as low as reasonably achievable (ALARA). [facility]: Dose Right [facility]: CareDose [facility]: Dose Right [facility]: Teradose 4D [facility]: Kigo CONTRAST TYPE AND DOSE: contrast/concentration: Isovue 370.00 mg/ml; Total Contrast Delivered: 75.0 ml; Total Saline Delivered: 45.1 ml RENAL FUNCTION: BUN 14 creatinine 0.71 RADIATION DOSE: CT Rad equipment meets quality standard of care and radiation dose reduction techniq ues were employed. CTDIvol: 7.1 - 53.2 mGy. DLP: 1181 mGy-cm. . LIMITATIONS: None. FINDINGS: SKULL BASE: Intact. MAJOR SALIVARY GLANDS: No solid or cystic masses. No inflammatory changes. LYMPHADENOPATHY: No adenopathy. MUCOSAL MASSES OR ASYMMETRY: No mucosal masses or asymmetry. LARYNX/CORDS: No abnormal findings. VASCULAR STRUCTURES: The major vessels are patent. LUNG APICES: Clear. BONES: Intact. THYROID: Normal size. No masses. PARANASAL SINUSES: Paranasal sinuses clear. The mastoid air cells are clear. OTHER: No other significant finding. IMPRESSION: NO SIGNIFICANT FINDING IN THE SOFT TISSUES OF THE NECK. TECHNICAL DOCUMENTATION: JOB ID: [id number] Quality ID # [id number]: Final reports with documentation of one or more dose reduction techniques (e.g., Au tomated exposure control, adjustment of the mA and/or kV according to patient size, use of iterative reconstruction technique) 2010 [employer]- All Rights Reserved Reading location - IP/workstation name: [email or web address]
[2018-02-12] MEDS ORDERED: PREDNISONE 20 MG TABLET PO ONE (23:03)
== END 2018-02-13 00:10 | disposition home or self-care (01) ==
LOC: ER 17:57
DX: J02.9 Acute pharyngitis, unspecified (principal); B34.9 Viral infection, unspecified; R50.9 Fever, unspecified; R51 Headache; Z87.442 Personal history of urinary calculi
CPT/HCPCS: 99284; 96361; 96374; 96375; 36415; 87040; 84703; 85025; 80053; 81001; 83605; 70460; 70491; J2930; J1885; J7512; J7030

== ENCOUNTER 2020-01-23 13:21 | Emergency (ER) | payer SELFPAY ==
[2020-01-23] MEDS ORDERED: ACETAMINOPHEN 325 MG TABLET PO ONE (13:37)
--- NOTE | 2020-01-23 13:38 | ER Document Report ---
HPI - HPI Time Seen by Provider: 01/23/20 13:30 Notes: 29-year-old female presents emergency room for complaints of right ankle and right tib-fib pain after she fell while skateboarding 2 days ago. Denies any head trauma or change in level consciousness. Has tried komf-grh-xuodcus ibuprofen without full relief has tried elevation icing that she still is having pain. Patient states she has an IUD, denies . Pain is 3 out of 5, sharp throbbing and achy. Unable to bear full weight. Denies any numbness tingling to bilateral lower extremities.. Denies fevers, chills, chest pain,palpitations, shortness of breath, dyspnea, nausea, vomiting, diarrhea, abdominal pain, hematuria,blurred vision, double vision, loss of vision, speech changes, LH, dizziness, syncope, headaches, wheezing, ST, URI, neck pain, weakness, bowel or bladder dysfunction, saddle anesthesia, numbness or tingling in bilateral upper or lower extremities equally, muscle paralysis, weakness in bilateral upper or lower extremities equally or rash. - REPRODUCTIVE Reproductive: DENIES: : Past Medical History - General Information source: Patient - Social History Smoking Status: Unknown if Ever Smoked Family History: Reviewed & Not Pertinent - Past Medical History Cardiac Medical History: Denies: Hx Coronary Artery Disease, Hx Heart Attack, Hx Hypertension Pulmonary Medical History: Denies: Hx Asthma, Hx Bronchitis, Hx COPD, Hx Pneumonia Neurological Medical History: Denies: Hx Cerebrovascular Accident, Hx Seizures Renal/ Medical History: Reports: Hx Kidney Stones. Denies: Hx Peritoneal Dialysis Musculoskeletal Medical History: Denies Hx Arthritis Psychiatric Medical History: Reports: Hx Attention Deficit Hyperactivity Disorder Past Surgical History: Reports: Hx Kidney (Renal Surgery) - laser Lithotripsy of right ureteral stone, ureteral stent placed. - Immunizations Hx Diphtheria, Pertussis, Tetanus Vaccination: No Vertical Provider Document - CONSTITUTIONAL Agree With Documented VS: Yes Exam Limitations: No Limitations General Appearance: WD/WN Notes: PHYSICAL EXAMINATION: reviewed vital signs by RN GENERAL: Well-appearing, well-nourished and in no acute distress. HEAD: Atraumatic, normocephalic. EYES: Pupils equal round and reactive to light, extraocular movements intact, conjunctiva are normal. ENT: Nares patent, oropharynx clear without exudates. Moist mucous membranes. NECK: Normal range of motion, supple without lymphadenopathy LUNGS: Breath sounds clear to auscultation bilaterally and equal. No wheezes rales or rhonchi. HEART: Regular rate and rhythm without murmurs ABDOMEN: Soft, nontender, nondistended abdomen. No guarding, no rebound. No masses appreciated. Female : deferred Musculoskeletal: Normal range of motion, no pitting or edema. No cyanosis. right ankle with swelling, tenderness on lateral aspect of ankle that extends to mid nassar on lateral apsect. pain with inversion. squeeze test negative bilaterally. dtr +2 BLE. Limited APROM. distal pulses + 2 BLE equally. Full motor and sensory function of bilateral lower extremities. No noted open wounds or abrasion. Normal gait. No vascular compromise. Peroneal nerve is intact with strong eversion and plantar flexion. Negative anterior drawer test. muscle strength 5/5 in BLE equally. NEUROLOGICAL: Cranial nerves grossly intact. Normal speech, normal gait. Normal sensory, motor exams PSYCH: Normal mood, normal affect. SKIN: Warm, Dry, normal turgor, no rashes or lesions noted. - INFECTION CONTROL TRAVEL OUTSIDE OF THE [place] IN LAST 30 DAYS: No Course - Re-evaluation Re-evalutation: 01/23/20 13:35 Afebrile vital stable no distress. Nurses notes reviewed. X-ray of her tib-fib showed a distal fibular fracture with slight posterior displacement. Ankle x- ray was negative. consent by pt given to place long posterior leg splint,. cms intact, sensory motor function intact in bilateral lower extremities prior to splint application fiberglass splint placed without incident. cms intact 20 minutes after splint application. Splint is in good alignment. Bilateral lower extremities with motor and sensory function intact 20 minutes after application. Pt stated that splint felt comfortable. Patient given crutches. Discussed compartment syndrome signs and symptoms to watch for. Advised to not drink alcohol, drive motorized vehicle or operate heavy machinery while taking narcotics and cause sedation impairment of cognitive function. Follow-up with an cardiovascular disease specialist within the next 3 to 5 days for cast placement, referral given. After performing a Medical Screening Examination, I estimate there is LOW risk for OPEN FRACTURE, COMPARTMENT SYNDROME, DEEP VENOUS THROMBOSIS, ACUTE TENDON RUPTURE, or NEUROVASCULAR INJURY thus I consider the discharge disposition reasonable. I have reevaluated this patient multiple times and no significant life threatening changes are noted. The patient and I have discussed the diagnosis and risks, and we agree with discharging home to closely follow-up with their primary doctor or the referral orthopedist with the understanding that symptoms and presentations can change. We also discussed returning to the Emergency Department immediately if new or worsening symptoms occur. We have discussed the symptoms which are most concerning (e.g., changing or worsening pain, numbness, weakness) that necessitate immediate return - Vital Signs Vital signs: Temp Pulse Resp BP Pulse Ox 98.3 F 91 14 121/80 98 01/23/20 13:25 01/23/20 13:25 01/23/20 13:25 01/23/20 13:25 01/23/20 13:25 Discharge - Discharge Clinical Impression: Right ankle sprain, Right fibular fracture Condition: Stable Disposition: HOME, SELF-CARE Instructions: Noe Wrap ([facility]), Ankle Stirrup Splint ([facility]), Compartment Syndrome Cautions ([facility]), Use of Crutches ([facility]), Ice & Elevation ([facility]), Ice Packs ([facility]), Oral Narcotic Medication ([facility]), Splint Precautions ([facility]), Sprained Ankle ([facility]) Additional Instructions: Please follow-up with cardiovascular disease specialist for casting within the next [address], drink or operate heavy machinery while taking oral narcotic medications can cause sedation or impairment of cognitive function. Do not get splint wet. Please return if you have worsening pain and swelling, fever greater than 101, you notice spreading redness from the area, or have any other symptoms that are concerning to you. Please follow-up with orthopedic surgery if your symptoms have not improved in the next 2-3 weeks. Prescriptions: Naproxen 500 mg PO BID #10 tablet Forms: Return to Work Referrals: OMERO LUNDBERG MD [Primary Care Provider] - Follow up as needed MARTA GONZALEZ JR, DO [ACTIVE PROVISIONAL STAFF] - Follow up in 3-5 days
[2020-01-23] MEDS ORDERED: HYDROCODONE/ACETAMINOPHEN 5-325 MG (6 TAB/ER DISP) PO PRN (14:27)
--- NOTE | 2020-01-23 14:35 | RADIOLOGY REPORT (SQ) ---
EXAM DESCRIPTION: ANKLE RIGHT COMPLETE; TIBIA FIBULA RIGHT IMAGES COMPLETED DATE/TIME: 01/23/2020 2:22 pm REASON FOR STUDY: s/p fall x 2 days ago, +pain/swelling COMPARISON: None. FINDINGS: Three views right ankle: Oblique intra-articular fracture through the distal fibula with only slight posterior displacement. Mortise maintained. Mild soft tissue swelling. No other region al fracture. Two views, 4 images of the remaining tibia and fibula. No other fractures. Knee intact. TECHNICAL DOCUMENTATION: JOB ID: [id number] Reading location - IP/workstation name: [email or web address]
--- NOTE | 2020-01-23 14:35 | RADIOLOGY REPORT (SQ) ---
EXAM DESCRIPTION: ANKLE RIGHT COMPLETE; TIBIA FIBULA RIGHT IMAGES COMPLETED DATE/TIME: 01/23/2020 2:22 pm REASON FOR STUDY: s/p fall x 2 days ago, +pain/swelling COMPARISON: None. FINDINGS: Three views right ankle: Oblique intra-articular fracture through the distal fibula with only slight posterior displacement. Mortise maintained. Mild soft tissue swelling. No other region al fracture. Two views, 4 images of the remaining tibia and fibula. No other fractures. Knee intact. TECHNICAL DOCUMENTATION: JOB ID: [id number] Reading location - IP/workstation name: [email or web address]
[2020-01-23 16:19] VITALS: BP 113/69
== END 2020-01-23 16:18 | disposition home or self-care (01) ==
LOC: ER 13:21
DX: S82.431A Displaced oblique fracture of shaft of right fibula, initial encounter for closed fracture (principal); S93.401A Sprain of unspecified ligament of right ankle, initial encounter; V00.131A Fall from skateboard, initial encounter; Y93.51 Activity, roller skating (inline) and skateboarding; Z97.5 Presence of (intrauterine) contraceptive device
CPT/HCPCS: 99283